=== PATIENT | male | born 1935 | race Caucasian/White ===

== ENCOUNTER → 2017-07-12 | Outpatient (CLI) | payer MEDICARE, OTHER | END | disposition home or self-care (01) | LOC: EDBD 07-05 07:00 → CVU 08:36 | PROVIDERS: ATTEND Internal Medicine Cardiovascular Disease | DX: E78.5 Hyperlipidemia, unspecified (principal); R29.898 Other symptoms and signs involving the musculoskeletal system; Z87.891 Personal history of nicotine dependence; R51 Headache | CPT/HCPCS: 93880 ==

== ENCOUNTER 2020-01-02 12:08 | Emergency (ER) | payer MEDICARE ==
[~2020-01-02] VITALS: Ht 180.3 cm; Wt 74.3 kg
--- NOTE | 2020-01-02 13:10 | NUR ---
THIS IS A 84 YO M W/ C/O POSTERIOR HEAD LAC AFTER A GLF THIS MORNING, PT REPORTS HE WAS ON A LADDER AND FELL BACK AND HIT HIS HEAD, DENIES LOC/BLOOD THINNERS. PT IS A&OX4. RESP EVEN AND UNLABORED, [facility]
--- NOTE | 2020-01-02 13:20 | NUR ---
PT TO CT.
--- NOTE | 2020-01-02 14:17 | NUR ---
WOUND CLEANED W/ NS. DR.VAN STORY UPDATED AND IN ROOM FOR EVAL.
[2020-01-02 14:24] VITALS: BP 159/83
== END 2020-01-02 14:42 | disposition home or self-care (01) ==
LOC: ED 14:00
DX: S00.01XA Abrasion of scalp, initial encounter (principal); M25.511 Pain in right shoulder; W01.0XXA Fall on same level from slipping, tripping and stumbling without subsequent striking against object, initial encounter; Y93.89 Activity, other specified; Y92.098 Other place in other non-institutional residence as the place of occurrence of the external cause; Y99.8 Other external cause status
CPT/HCPCS: 70450; 71045; 99284